=== PATIENT | female | born 1995 | race Caucasian/White ===

== ENCOUNTER 2021-09-09 20:13 | Emergency (ER) | payer OTHER ==
[2021-09-09 20:24] VITALS: BMI 34.9
[2021-09-09] MEDS ORDERED: ACETAMINOPHEN 500 MG TABLET (FP) PO ONE (21:39)
[2021-09-09] MEDS ORDERED: IBUPROFEN 400 MG TABLET (FP) PO ONE ×2 (21:39→22:04)
[2021-09-09] MEDS ORDERED: ACETAMINOPHEN 500 MG TABLET (FP) ONE (22:04)
[2021-09-09 23:13] VITALS: BP 117/77; PULSE 78; TEMP 97.8
== END 2021-09-09 23:39 ==
LOC: JER 20:13
PROC: 2W3AX1Z Immobilization of Right Upper Arm using Splint (ICD-10-PCS; principal; 2021-09-09)
DX: S59.902A Unspecified injury of left elbow, initial encounter (principal); W10.9XXA Fall (on) (from) unspecified stairs and steps, initial encounter
CPT/HCPCS: 73060-TC-LT-FY; 73070-TC-LT-FY; 73090-TC-LT-FY; 73110-TC-LT-FY; 73130-TC-LT-FY; 99285-25

== ENCOUNTER 2023-12-01 19:32 | Emergency (ER) | payer OTHER ==
[2023-12-01] MEDS ORDERED: DIVALPROEX NA *ER* EXTEND REL 250 MG TABLET.SA PO ONE (19:43)
[2023-12-01] MEDS ORDERED: ARIPiprazole 5 MG TABLET PO ONE (19:45)
[2023-12-01] MEDS ORDERED: GABAPENTIN 100 MG CAPSULE PO ONE (19:46)
[2023-12-01 19:57] VITALS: BP 121/62; PULSE 79; RESP 20; TEMP 97.8; BMI 33.3
[2023-12-01] MEDS: DIVALPROEX SODIUM 500 MG TABLET E.C. PO ONE (19:57)
== END 2023-12-01 20:16 | disposition home or self-care (01) ==
LOC: FER 19:32
DX: Z76.0 Encounter for issue of repeat prescription (principal)
CPT/HCPCS: 99281-25